=== PATIENT | female | born 1945 | race Caucasian/White ===

== ENCOUNTER → 2018-04-23 | Outpatient (CLI) | payer MEDICARE, BC ==
[~2018-04-23] MED LIST: ACET-2031 PO; ACET500T68 PO; ALOE25CA PO; ASCO-182 PO; CHOL200018 PO; GLUC1TAB13 PO; MULT-1085 PO; NITR-105 PO; OMEG-23 PO
--- NOTE | 2018-04-23 12:17 | EKG ---
FACILITY: [facility] PATIENT NAME: SEVERO BESS : [id number] MR: [id number] V: [id number] EXAM DATE: ORDERING PHYSICIAN: JACOBY ECHOLS TECHNOLOGIST: RASTA Test Reason : TACHYCARDIA Blood Pressure : / mmHG Vent. Rate : 105 BPM Atrial Rate : 227 BPM P-R Int : 000 ms QRS Dur : 098 ms QT Int : 352 ms P-R-T Axes : 000 033 086 degrees QTc Int : 465 ms Atrial fibrillation with premature ventricular or aberrantly conducted complexes ST and T wave abnormality, consider anterolateral ischemia Abnormal ECG No previous ECGs available Referred By: ONESIMO Confirmed By:
== END ==
LOC: RESP 11:46
PROVIDERS: ATTEND Family Medicine
DX: Z02.9 Encounter for administrative examinations, unspecified (principal)

== ENCOUNTER → 2018-04-26 | Outpatient (CLI) | payer MEDICARE, BC | LOC: US 02:01 | PROVIDERS: ATTEND Family Medicine | DX: I51.7 Cardiomegaly (principal); I34.0 Nonrheumatic mitral (valve) insufficiency | CPT/HCPCS: 93306 ==

== ENCOUNTER → 2018-05-25 | Outpatient (CLI) | payer MEDICARE, BC ==
[2018-05-25 10:21] LABS: PLATELET COUNT, AUTOMATED 290 K/uL (150-450)
== END ==
LOC: LAB 09:58
PROVIDERS: ATTEND Internal Medicine Medical Oncology
DX: I48.0 Paroxysmal atrial fibrillation (principal)
CPT/HCPCS: 36415; 85025; 85240; 85245; 85246

== ENCOUNTER → 2018-07-02 | Outpatient (CLI) | payer MEDICARE, BC | LOC: LAB 11:33 | PROVIDERS: ATTEND Internal Medicine Cardiovascular Disease | DX: I42.0 Dilated cardiomyopathy (principal); I48.0 Paroxysmal atrial fibrillation | CPT/HCPCS: 36415; 82310; 82374; 82435; 82565; 82947; 83880; 84132; 84295; 84520 ==

== ENCOUNTER 2018-10-08 10:13 | Outpatient (RCR) | payer MEDICARE, BC ==
[2018-07-23 14:26] VITALS: BP 122/78
--- NOTE | 2018-07-24 05:25 | ONCOLOGY CONSULTATION ---
EVENT DATE: July 23, 2018 CHIEF COMPLAINT/REASON FOR VISIT Ms. Howell is a 73-year-old female with congestive heart failure and a low ejection fraction, who was diagnosed with a bleeding diathesis in the and is concerned about starting the recommended anticoagulation, here for consultation. HISTORY OF PRESENT ILLNESS Ms. Howell is a very pleasant patient of Dr. Claros and Dr. Cortes, who has a suppressed ejection fraction below 30%. This has led to Dr. Claros to make the recommendation of full anticoagulation to prevent stroke. Dede expresses understanding, but she is very concerned about the risk of bleeding, given her mother's history of multiple unprovoked bleeds as well as the patient's reported diagnosis of von Willebrand disorder. This diagnosis was made in the , when she had her tonsils removed as an adult. She also states that she had hemorrhage with the of her daughter, who is present here today. She has no other children, and the event was traumatic enough for her and her to decide not to have further children. She has had no other surgeries or major events where we could test her bleeding risk. She had a von Willebrand panel done by Dr. Claros, which was completely negative, and this raises concern for me that she either had a clinical diagnosis of von Willebrand's without testing or she had a factor VIII inhibitor after her tonsillectomy that has now resolved. Dede states that she continues to bruise easy, and she is very concerned about initiating anticoagulation. PAST MEDICAL HISTORY 1. Unknown bleeding diathesis. 2. Osteoporosis. 3. Congestive heart failure with a suppressed ejection fraction. ALLERGIES 1. ASPIRIN. 2. LACTOSE. 3. TETRACYCLINE. 4. COUMADIN. It is not clear whether Coumadin is listed by Dede as an intolerance or simply a concern with taking it. FAMILY HISTORY Her mother reportedly had a bleeding disorder of some kind and had multiple hospitalizations for bleeding. There are Alzheimer's and Parkinson's in the family as well. She was here with her daughter today. SOCIAL HISTORY Patient is . She has one daughter. No drug use. No tobacco use. Rare alcohol use. REVIEW OF SYSTEMS CONSTITUTIONAL: No fevers, chills, or weight change. She has noted some loss of weight in the past, but none recently. HEENT: No headaches or vision changes. CARDIOVASCULAR: No chest pain or dyspnea on exertion. GI: No nausea or vomiting. : No dysuria or hematuria. MUSCULOSKELETAL: No weakness or joint pain. PSYCHIATRIC: No anxiety or depression. ENDOCRINE: No heat or cold intolerance. HEMATOLOGIC: Easy bruising and bleeding, according to the patient. No formal diagnosis of bleeding diathesis to date. NEUROLOGIC: No numbness or headaches. SKIN: No concerning rashes or lesions. Remainder of 14-point review of systems otherwise negative. PHYSICAL EXAMINATION VITAL SIGNS: Blood pressure 122/78, pulse 79, respiratory rate 16, temperature 100.1 Fahrenheit, oxygen saturation 96% on room air. Weight 39.3 kg. Pain 0/10, fatigue 0/10. GENERAL: In stable condition. Resting comfortably in the chair. HEENT: Normocephalic, atraumatic. ABDOMEN: Soft, nontender. No organomegaly or masses appreciated. Remainder of full physical exam deferred today due to amount of time spent in counseling and coordination of care. IMPRESSION/REPORT/PLAN Ms. Howell is a very pleasant 73-year-old female with the followin. Congestive heart failure with suppressed ejection fraction. Appropriate recommendation for anticoagulation made. 2. Unknown bleeding diathesis. I am concerned that this was a clinical diagnosis as opposed to one made by laboratory testing. Her von Willebrand panel from last year was completely normal. We will repeat this, as this can vary with drug exposure. She has no estrogen replacement, which is a common cause for improved von Willebrand levels. The patient would like to get testing done to see if she does have a lab diagnosis for her bleeding history. She has had two major surgeries in the past, one related to a with a tear that required suture, as well as a tonsillectomy in young adulthood. Fortunately, no other surgeries since then. I had a conversation with the patient today about the utility of these testings. I sensed from the conversation that she is resistant to the idea of anticoagulation for her heart regardless of the result of this testing. She and her daughter state they would like to think about that, as this may be the case. If her testing is negative, she may not accept anticoagulation regardless. They are learning toward getting testing, though, because they would like to know more about her history, and we will take precautions in the future. We will get some testing, some of which can be expensive, so we would like to get prior authorization if possible from Social Work. This may not be possible. After we have investigated this, we will get the labs, and then I will see her in followup. Answered all of their questions today. BILLING New patient level 4. Total time 45 minutes, counseling time 30. MTDD
[2018-07-27 14:47] VITALS: BP 105/91
[2018-07-27 15:15] LABS: PLATELET COUNT, AUTOMATED 264 K/uL (150-450)
[2018-07-27 15:31] LABS: INR 1.18
[~2018-10-08 10:13] MED LIST changes: +CALC600T63 PO
[2018-10-08 10:25] VITALS: BP 130/76
--- NOTE | 2018-10-09 05:46 | ONCOLOGY FOLLOW UP NOTE ---
EVENT DATE: October 08, 2018 CHIEF COMPLAINT/REASON FOR VISIT Ms. Howell is a 73-year-old female patient of Dr. Segun Louie's who presents to discuss her concerns for bleeding diathesis. HISTORY OF PRESENT ILLNESS Dede returns. We repeated extensive testing and did not find a diagnosis that would be consistent with a bleeding diathesis. We reviewed her labs from 1988, which showed borderline-low levels of von Willebrand, particularly factor VIII antigen, despite normal factor VIII activity at 87%. The report is very appropriate and describes her values as all normal, that patients can have very mild von Willebrand disease with variable plasma levels, and recommend observation with any surgery and possible consideration of DDAVP. Her lab evaluation by our team is identical to this. We do see her von Willebrand panel as slightly higher by our tests than they were in 1988, but they are not up to 100%. I advised the patient it would be very appropriate to pursue anticoagulation for her CHF and suppressed ejection fraction. I asked her if she has thought about this any further, and she continues to state that she is extremely concerned about initiating anticoagulation. Her mother was on Coumadin and had multiple bleeding complications when Dede was younger. She is very scared to be on anticoagulation. I had an excellent conversation with Dede today regarding Dr. Luoie's appropriate recommendations, of which I agree on their medical appropriateness; however, i stressed to Dede that it is completely her choice whether or not she pursues this recommendation. She states that she is very fearful and does not want to pursue anticoagulation. I support this decision. Her daughter and son-in-law understand Dr. Louie's recommendation as well and do not agree with Ms. Howell. I am going to attempt to reach them later this week, as, unfortunately, the daughter is on vacation and could not join us for this appointment. The daughter did offer to listen in on the conversation by phone, but Ms. Howell rejected that idea. I asked Ms. Howell if it would be okay for me to contact her daughter to discuss our visit today, and she stated that that was very appropriate and she would appreciate that. I will try to do that in the nearest available time. My summary will be that, while anticoagulation is appropriate and she does not have a formal diagnosis of bleeding diathesis, I support her decision to forgo the recommendation and not pursue anticoagulation. Answered all of her many questions today. Physical exam deferred today, due to amount of time spent in counseling and coordination of care. PHYSICAL EXAMINATION VITAL SIGNS: Blood pressure 130/76, pulse 89, respiratory rate 16, temperature 98.6 Fahrenheit, oxygen saturation 96% on room air. Weight 39.5 kg, which is stable compared to earlier this year. Pain 0/10, fatigue 0/10. BILLING Based on time and high complexity, level 5. Total time 45 minutes, counseling time 30. MTDD
== END 2018-10-18 ==
LOC: ONC 10:13
PROVIDERS: ATTEND Internal Medicine
DX: D68.0 Von Willebrand disease (principal); I50.9 Heart failure, unspecified; M81.0 Age-related osteoporosis without current pathological fracture; D69.9 Hemorrhagic condition, unspecified
CPT/HCPCS: 36415; 85025; 85240; 85245; 85246; 85379; 85384; 85610; 85730; G0463; 82040; 82247; 82310; 82374; 82435; 82565; 82947; 84075; 84132; 84155; 84295; 84450; 84460; 84520; 99202; 99212